=== PATIENT | female | born 1965 | race Caucasian/White ===

== ENCOUNTER 2017-05-01 22:04 | Emergency (ER) | payer OTHER ==
[~2017-05-01] VITALS: Ht 165.1 cm; Wt 90.7 kg
--- NOTE | ~2017-05-01 | CT71 ---
[facility] A Service [facility] RADIOLOGY TEXT RESULTS PATIENT: JENNA MATHIS LOCATION: [facility] : 61 UNIT #: [id number] AGE: [address]: BOBO PATEL APRN SEX: F ORDER DR: [id number] [place], [place] [address] [id number] MR#: [id number] Acc #: [id number] NAME: JENNA MATHIS : 1965 SEX: F STUDY DATE/TIME: 05/01/2017 23:59 UNIT: [facility] ROOM: STUDY DESCRIPTION: CT Head Wo Contrast Attending Physician: Bobo Patel Aprn Ordering Physician: Bobo Patel Aprn Primary Care Physician: Mauri David D.O. MEDICAL IMAGING REPORT This report is preliminary unless electronic signature is present EXAM Noncontrast CT head. DATE: 05/01/2017 at 23:59 HISTORY 52-year-old female with frontal headaches since 13:00 today. Pain in the back of the neck. Additional history of hypertension. COMPARISON Noncontrast CT head 09/07/2014. FINDINGS TECHNIQUE Axial noncontrast images were obtained from the skull base to the vertex. This CT exam was performed with one or more of the following radiation dose reduction techniques: automatic exposure control, adjustment of mA and/or kV according to patient size, and iterative reconstruction. FINDINGS Ventricular size and configuration are normal. There is no evidence of acute infarct or hemorrhage. There are no extraaxial fluid collections. No mass lesion or mass effect is seen. There are no skull fractures. IMPRESSION Normal noncontrast head CT. Dictated by... Terri Patterson M.D. [facility] A Service [facility] RADIOLOGY TEXT RESULTS PATIENT: JENNA MATHIS LOCATION: [facility] : 61 UNIT #: [id number] AGE: [address]: BOBO PATEL APRN SEX: F ORDER DR: THIS IS AN ELECTRONICALLY VERIFIED REPORT Terri Patterson M.D. at 05/02/2017 9:58 PM JAMEEL/evelyn TD: 05/02/2017 09:55 JOB #: [id number] MEDICAL IMAGING REPORT Page 1 of 1 COPY
[~2017-05-01 22:04] MED LIST: ACETAMINOPHEN PO; ALPRAZOLAM ER1 MG PO; ALPRAZOLAM1 MG PO; AMBIEN PO; BACLOFEN10 MG PO; BENTYL10 MG PO; CALCIUM 600 +1 EAC2 PO; CALCIUM 600 +1 EAC6 PO; CALCIUM1 TAB.CHEW; CIPRO PO; COLACE PO; CYMBALTA PO; DIAZEPAM10 MG PO; DICYCLOMINE HCL20 MG PO; DURAGESIC12 MCG; DURAGESIC25 MCG EXT; DURAGESIC25 MCG TOP; DURAGESIC25 MCG TP; ESTROGEN PO; FERROUS SULFATE1 TAB PO; FLAGYL PO; FLEXERIL10 M1 PO; FUROSEMIDE40 MG PO; GABAPENTIN600 MG PO; GEODAN; GEODAN PO; GRALISE600 MG PO; HYDROCODON-ACE1 EAC7; INDOCIN PO; INDOCIN SR75 MG PO; INDOCIN25 MG/5 ML PO; INDOMETHACIN 25 MG; INDOMETHACIN25 MG PO; IRON SUPPLEMENT1 TAB PO; KCL 40 MEQ; KEFLEX PO; KEFLEX500 M1 PO; KLONOPIN; KLONOPIN PO; KLONOPIN1 MG PO; KLOR-CON PO; LAMICTAL PO; LAMICTAL150 MG PO; LAMICTAL25 MG PO; LASIX PO; LASIX20 MG PO; LATUDA120 MG PO; LATUDA20 MG; LATUDA80 MG PO; LEVAQUIN PO; LISINOPRIL PO; LISINOPRIL10 MG PO; LOPRESSOR PO; MEDROL4 MG PO; MEDROL4 MG/DOSE- PO; MELATONIN5 MG PO; METOPROLOL SUCC25 MG PO; METOPROLOL TART25 MG PO; MICRO-K10 ME2 PO; MINIPRESS1 MG PO; MIRALAX255 GM PO; MIRAPEX PO; NAPROSYN-EC500 MG PO; NAPROSYN500 MG PO; NAPROXEN PO; NEURONTIN PO; NEURONTIN300 MG PO; NEURONTIN600 MG PO; OMEGA 3 FISH OI1 CAP PO; OXAPROZIN600 MG PO; OXYCODONE HCL10 MG PO; OYSTER CALCIUM500 MG PO; PARAFON FORTE500 MG PO; PERCOCET 10/3251 TAB PO; PERCOCET 7.5/321 TAB PO; PERCOCET10 PO; PERCOCET5/325 PO; PHENERGAN25 M1 PO; PHENTERMINE H37.5 M1 PO; POTASSIUM CHLO10 MEQ PO; PRAMIPEXOLE DI0.5 MG PO; PRAMIPEXOLE0.125 MG PO; PREMARIN; PREMARIN PO; PREMARIN0.45 MG PO; PRILOSEC; PRILOSEC PO; PRILOSEC20 M1 PO; PRILOSEC40 MG PO; PRINIVIL10 MG PO; REGLAN PO; REGLAN10 MG PO; REMERON; REQUIP1 MG PO; RITALIN PO; ROBAXIN 750750 M1 PO; ROBAXIN PO; ROBAXIN500 MG PO; TYLENOL #3 PO; TYLOX 5/500 CAP1 CAP; TYLOX 5/500 CAP1 CAP PO; VALIUM10 MG PO; VICODIN 5/500 T1 TAB PO; VISTARIL50 MG PO; VITAMIN D50000 UNIT PO; VOLTAREN75 MG PO; WELLBUTRIN PO; XANAX1 MG PO; ZANAFLEX PO; ZESTORETIC 10-1 EACH PO; ZESTRIL10 M1 PO; ZOFRAN ODT4 MG PO; ZYPREXA10 MG PO; ZYPREXA20 MG PO; [UNRECOGNIZED DRUG - OTHER]; [UNRECOGNIZED DRUG - OTHER]; [UNRECOGNIZED DRUG - REMARK] PO
== END 2017-05-02 02:20 | disposition home or self-care (01) ==
LOC: CED 22:04
DX: R51 Headache (principal); I10 Essential (primary) hypertension; Z90.49 Acquired absence of other specified parts of digestive tract; Z90.710 Acquired absence of both cervix and uterus; Z88.1 Allergy status to other antibiotic agents; Z88.5 Allergy status to narcotic agent; Z88.6 Allergy status to analgesic agent
CPT/HCPCS: 70450; 96361; 96374; 96375; 99284; J1100; J1200; J2765